=== PATIENT | female | born 1955 | race Caucasian/White ===

== ENCOUNTER 2022-05-22 12:45 | Emergency (ER) | payer OTHER, SELFPAY ==
[2022-05-22 12:50] VITALS: BP 123/63; PULSE 103; RESP 16; TEMP 36.1; O2SAT 100; BMI 29.6
--- NOTE | 2022-05-22 13:17 | EX.ED.DYSGE1 ---
HPI History of Present Illness Chief Complaint: Complaint Informant: patient Onset/Context/Timing Onset: Today Context: Sudden Onset Timing: Continuous Quality: Burning Location: Suprapubic area Worsened by: Nothing Relieved by: Nothing Narrative Narrative: Patient presents with dysuria, hematuria, and frequency that began this morning. Patient states that she has some burning with urination. Patient admits she going more frequently today. Patient states that she has noted some blood in her urine that has gotten worse throughout the day. Patient admits to some pain in her left lower back area. Patient denies any nausea or vomiting. Patient denies any fevers or chills. Patient denies any chest pain or shortness of breath. [facility] Medical History GERD (gastroesophageal reflux disease) Hiatal hernia Home Medications ciprofloxacin HCl 500 mg tablet 500 mg PO BID #10 TABLETS 05/22/22 [Rx Last Taken Unknown] Allergy/AdvReac Type Severity Reaction Status Date / Time bupropion [From Wellbutrin] Allergy Anaphylaxis Verified 05/22/22 12:52 azithromycin AdvReac Hives Verified 05/22/22 12:52 Sulfa (Sulfonamide AdvReac Hives Verified 05/22/22 12:52 Antibiotics) Social History Smoking Status: Never smoker ROS ROS ED Constitutional Constitutional ED: Denies chills or fever(s) Eyes Eyes: Denies blurry vision or change in vision ENT ENT ED: Denies rhinorrhea or sore throat Cardiovascular Cardiovascular: Denies chest pain or palpitations Respiratory/Chest Respiratory/Chest: Denies cough or dyspnea Gastrointestinal Gastrointestinal: Denies nausea or vomiting Genitourinary Genitourinary ED: Reports dysuria, hematuria and urinary frequency Musculoskeletal Musculoskeletal: Reports back pain; Denies neck pain Integumentary Denies abscess or rash Neurologic Neurologic: Denies headache(s) or weakness Allergic/Immunologic Allergic/Immunologic ED: Denies mouth swelling or urticaria EXAM Physical Exam Const Vital Signs: 05/22/22 12:50 Temperature 97 F L Temperature Source Temporal Pulse Rate 103 H Respiratory Rate 16 Blood Pressure 123/63 H Blood Pressure Mean 83 Pulse Ox 100 Oxygen Delivery Method Room Air Positive well nourished and well developed General Appearance ED: well developed and NAD HEENT Reports moist mucous membranes Neck supple and no JVD Resp normal respiratory effort and clear to auscultation bilaterally Cardio regular rate, regular rhythm and no murmurs GI normal to inspection, nondistended, normoactive bowel sounds and non-tender Palpation: soft Extremity normal to inspection General Extremety ED: Negative for edema or tenderness General Extremity: Negative for edema Neuro oriented x3, CN's II-XII intact bilaterally and no sensory deficits noted Sensorium / Orientation: alert Motor Exam: strength 5/5 throughout Psych mental status grossly normal Skin no rashes or lesions noted MDM MDM MDM Narrative Medical decision making narrative: Urinalysis was obtained. Occult blood was 250 with greater than 100 red blood cells. Leukocyte esterase was 500 with 50-100 white blood cells and 1+ bacteria. Urine culture was ordered. Patient was given a prescription for Cipro. Patient was instructed to drink plenty of fluids. Patient was instructed to follow-up with her primary care physician in 3 to 5 days. Patient understood and was agreeable with the plan. All questions were answered. Lab Data Attestation: I reviewed the patient's lab results. Labs: Laboratory Results - last 24 hr 05/22/22 12:50 Urine Color Yellow Urine Clarity Clear Urine pH 6.5 Ur Specific [place] 1.020 Urine Protein 500 H Urine Glucose (UA) Normal Urine Ketones 5 H Urine Occult Blood 250 H Urine Nitrite Negative Urine Bilirubin Negative Urine Urobilinogen Normal Ur Leukocyte Esterase 500 H Urine RBC > 100 SEEN Urine WBC 50-100 SEEN Ur Squamous Epith Cells 0 SEEN Urine Bacteria 1+ Urine Mucus 0 SEEN Discharge Plan Triage Chief Complaint: Complaint ED Provider: Rajesh Gonzalez Dx/Rx/DC Orders Clinical Impression: Acute hemorrhagic cystitis Instructions: ED CYSTITIS Female Adult Prescriptions: New ciprofloxacin HCl [ciprofloxacin HCl] 500 MG tablet 500 mg PO BID Qty: 10 0RF Primary Care Provider: Care Physician,No Primary Referrals: NOT,DEFINED [NON-STAFF] - 3-5 Days Disposition Disposition: Home, Self Care
[2022-05-22 13:33] LABS: Mucous, Urine 0 SEEN /hpf (<or=2+); Squamous Epithelial Cells - UA 0 SEEN /hpf (5-10)
[2022-05-22 13:38] LABS: Color, Urine Yellow (Yellow); Glucose, Dipstick Normal (Normal); Ketone-Dipstick 5 mg/dl (Negative); Leukocyte Esterase-Dipstick 500 /ul (Negative); Nitrite-Dipstick Negative (Negative); Occult Blood-Urine 250 /ul (Negative); Protein-Dipstick 500 mg/dl (Negative); Urine Bilirubin Dipstick Negative (Negative); Urine Clarity Clear (Clear); Urine Urobilinogen Normal (Normal); Urine pH 6.5 (5.0 - 8.0)
[2022-05-22 13:54] LABS: Bacteria 1+ /hpf (None Seen); Red Blood Cells-Urine > 100 SEEN /hpf (0-5); White Blood Cells 50-100 SEEN /hpf (0-5)
[2022-05-22 14:10] VITALS: BP 134/78; PULSE 78; RESP 14; TEMP 37.2; O2SAT 99
[2022-05-22] MEDS: Ciprofloxacin 500 MG Tablet PO (14:11)
== END 2022-05-22 14:20 | disposition home or self-care (01) ==
PROVIDERS: Emergency Provider Emergency Medicine; Visit Provider Emergency Medicine
DX: N30.01 Acute cystitis with hematuria (principal)
CPT/HCPCS: 81001; 87077; 87086; 87088; 87186; 99283